=== PATIENT | male | born 1955 | race Asian ===

== ENCOUNTER 2021-01-22 14:27 | Inpatient (IN) | payer MEDICAID ==
[~2021-01-22] VITALS: Ht 162.6 cm; Wt 67.6 kg
--- NOTE | 2021-01-22 14:45 | NUR ---
[id number] worsening lower back pain x 1 week. per report unable to ambulate today. 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 Patient a/ox3, breathing even and unlabored, no sob noted.
[2021-01-22] MEDS ORDERED: oxyCODONE/APAP (5/325 MG) 1 UDTAB TABLET PO ONE (15:30)
[2021-01-22] MEDS ORDERED: CYCLOBENZAPRINE 10 MG TABLET PO ONE (15:30)
--- NOTE | 2021-01-22 15:50 | NUR ---
Patient came back from radiology.
[2021-01-22] MEDS ORDERED: CYCLOBENZAPRINE 10 MG TABLET ONE (15:53)
[2021-01-22] MEDS ORDERED: oxyCODONE/APAP (5/325 MG) 1 UDTAB TABLET ONE (15:53)
[2021-01-22] MEDS ORDERED: CLONIDINE HCL 0.1 MG TABLET ONE (16:49)
[2021-01-22] MEDS ORDERED: HYDROMORPHONE 1 MG/1 ML DISP.SYRIN ONE (16:49)
[2021-01-22] MEDS ORDERED: CLONIDINE HCL 0.1 MG TABLET PO ONE (17:00)
[2021-01-22] MEDS ORDERED: HYDROMORPHONE 1 MG/1 ML DISP.SYRIN IM ONE (17:00)
--- NOTE | 2021-01-22 17:58 | NUR ---
BP STILL ELEVATED, INFORMED DR. BAEZA. PATIENT C/O PAIN ONLY WHEN HE MOVES.
[2021-01-22] MEDS ORDERED: LABETALOL 20 MG/4 ML VIAL IV ONE ×2 (18:30→19:30)
[2021-01-22] MEDS ORDERED: LABETALOL HCL IV 100MG VIAL ONE (18:43)
[2021-01-22 18:54] LABS: BASOPHILS % (AUTO) 0.7 % (0.0-2.0); EOSINOPHILS % (AUTO) 2.1 % (0.0-6.0); HEMATOCRIT 38 % (39-51); HEMOGLOBIN 12.6 g/dL (13.5-17.5); LYMPHOCYTES # (AUTO) 1.6 /CMM (0.8-4.8); LYMPHOCYTES % (AUTO) 22.9 % (20.0-44.0); MEAN CORPUSCULAR HGB CONC 33 g/dl (31.0-36.0); MEAN CORPUSCULAR VOLUME 89 fL (80-96); MONOCYTES # (AUTO) 0.6 /CMM (0.1-1.30); MONOCYTES % (AUTO) 8.6 % (2.0-12.0); NEUTROPHILS # (AUTO) 4.6 /CMM (1.8-8.9); NEUTROPHILS % (AUTO) 65.7 % (43.0-81.0); PLATELET COUNT (AUTO) 328 /CMM (150-450); RED BLOOD CELL COUNT(AUTO) 4.31 MIL/uL (4.5-6.0)
--- NOTE | 2021-01-22 19:05 | NUR ---
rec'd report from STACIA Doll for ilan
[2021-01-22 19:08] LABS: CALCIUM, SERUM 8.5 mg/dL (8.5-10.1); CREATININE 0.9 mg/dL (0.6-1.3); POTASSIUM 3.3 mmol/L (3.5-5.1)
--- NOTE | 2021-01-22 19:15 | NUR ---
REPORT GIVEN TO HEMA PALOMO.
--- NOTE | 2021-01-22 19:38 | NUR ---
DR. BAEZA SPEAKING WITH JOSH ANAND NP REGARDING ADMISSION
--- NOTE | 2021-01-22 20:34 | NUR ---
gave report to STACIA Friedman for ilan
[2021-01-22 21:00] VITALS: BP 132/67
--- NOTE | 2021-01-22 21:05 | NUR ---
ADMISSION NOTE PT ADMITTED FROM ER FOR IRETRACTABLE BACK PAIN. PATIENT RESIDENT AT [address] [place] [address] ASSISTED LIIGN. PATIENT CC WAS WORSENING LOWER BACK PAIN FOR 1 WEEK AND TODAY HE WAS UNABLE TO WALK. PT A/OX3 MANDARIN SETSWANA SPEAKING PRIMARILY. SPEAKS LITTLE MALTESE. PT PLACED IN BED. PT ORIENTED TO ROOM. PT DEMONSTRATED ABILITY TO USE CALL LIGHT. PT REPORTS NO PAIN TO BACK IF HE KEEPS STILL AND DOESN'T MOVE. BED DOWN LOCKED SRX2 AWAITING ORDERS FROM ADMITTING PROVIDER KIKA HUYNH.
[2021-01-22] MEDS: ENOXAPARIN SODIUM 40 MG/0.4 ML DISP.SYRIN SQ SCH ×2 (23:00→23:11)
[2021-01-22] MEDS ORDERED: ACETAMINOPHEN 325 MG TABLET PO PRN (23:00)
[2021-01-22] MEDS ORDERED: ONDANSETRON HCL/PF 4 MG/2 ML VIAL IVP PRN (23:00)
[2021-01-22] MEDS ORDERED: HYDROMORPHONE INJ 2 MG/ML DISP.SYRIN IV PRN (23:00)
[2021-01-22] MEDS ORDERED: Z GUARD REMEDY 2 OZ OINT TP PRN (23:00)
[2021-01-22] MEDS ORDERED: MAGNESIUM HYDROXIDE 30 ML UDC PO PRN (23:00)
[2021-01-22] MEDS ORDERED: MAG HYDROX/AL HYDROX/SIMETH 30 ML UDC PO PRN (23:00)
[2021-01-22] MEDS: POTASSIUM CHLORIDE 20 MEQ TAB.PRT.SR PO ONE ×2 (23:10→23:36)
--- NOTE | 2021-01-22 23:37 | NUR ---
Patient refused potassium and lovenox. Patient educated on risks and benefits. He replies "I dont need those. If it is not pain medicine I dont need it. I am here for back pain! I am not going to take them"
[2021-01-23 06:00] LABS: BASOPHILS % (AUTO) 0.5 % (0.0-2.0); HEMATOCRIT 37 % (39-51); HEMOGLOBIN 12.2 g/dL (13.5-17.5); LYMPHOCYTES # (AUTO) 1.4 /CMM (0.8-4.8); LYMPHOCYTES % (AUTO) 26.8 % (20.0-44.0); MEAN CORPUSCULAR HGB CONC 33 g/dl (31.0-36.0); MEAN CORPUSCULAR VOLUME 89 fL (80-96); MONOCYTES # (AUTO) 0.5 /CMM (0.1-1.30); MONOCYTES % (AUTO) 9.6 % (2.0-12.0); NEUTROPHILS # (AUTO) 3.2 /CMM (1.8-8.9); NEUTROPHILS % (AUTO) 60.1 % (43.0-81.0); PLATELET COUNT (AUTO) 287 /CMM (150-450); RED BLOOD CELL COUNT(AUTO) 4.14 MIL/uL (4.5-6.0); WHITE BLOOD COUNT (AUTO) 5.3 K/uL (4.3-11.0)
[2021-01-23 06:10] LABS: CALCIUM, SERUM 8.8 mg/dL (8.5-10.1); CREATININE 0.9 mg/dL (0.6-1.3); MAGNESIUM 2.5 mg/dL (1.8-2.4); POTASSIUM 3.1 mmol/L (3.5-5.1)
--- NOTE | 2021-01-23 06:18 | NUR ---
MS RN CLOSING NOTE Patient is sleeping but easy to rouse. A&Ox3. VS WNL. In no distress. Patient reports that at rest he does not feel pain, able to sleep throughout the night. Upon turning repositioning patient reports his back and neck is uncomfortable. Staff is gentle. Able to urinate using urinal, yellow clear urine. No signs of distress.
[2021-01-23] MEDS: PANTOPRAZOLE 40 MG TABLET.DR PO SCH (07:30)
--- NOTE | 2021-01-23 07:40 | NUR ---
MS RN OPENING NOTES RECEIVED PATIENT IN BED ASLEEP, EASILY AROUSE TO VOICE AND TOUCH. ALERT AND ORIENTED X3. PATIENT STABLE ON ROOM AIR. NO SIGNS OR SYMPTOMS OF DISTRESS NOTED. BREATHING IS REGULAR AND UNLABORED. IV ACCESS ON R WRIST#20 PATENT AND INTACT. SPEAKS MANDARIN, ABLE TO SPEAK SOME YAKUT. SAFETY MEASURES IN PLACE, BED LOCKED IN LOWEST POSITION. SIDE RAILS UP X 2. CALL LIGHT IS WITHIN REACH. WILL CONTINUE TO MONITOR THROUGHOUT SHIFT.
[2021-01-23 08:00] VITALS: BP 196/92
[2021-01-23] MEDS ORDERED: POTASSIUM CHLORIDE 20 MEQ TAB.PRT.SR PO ONE (08:30)
[2021-01-23] MEDS: ASPIRIN EC 81 MG TABLET.DR PO SCH (10:55)
[2021-01-23] MEDS: AMLODIPINE BESYLATE 10 MG TABLET PO SCH (10:56)
[2021-01-23] MEDS: METHOCARBAMOL (500MG) 500 MG TABLET PO SCH ×2 (12:22→20:26)
[2021-01-23] MEDS ORDERED: HYDROCODONE/APAP 5/325MG TABLET PO PRN (13:30)
[2021-01-23 16:00] VITALS: BP 166/97
[2021-01-23] MEDS: HYDROCODONE/APAP 10/325MG TABLET PO PRN ×3 (16:24→17:11)
[2021-01-23] MEDS: CLONIDINE HCL 0.1 MG TABLET PO PRN (16:57)
--- NOTE | 2021-01-23 19:14 | NUR ---
MS RN CLOSING NOTE PATIENT IN BED AWAKE. ALERT AND ORIENTED X3 . NO SIGNS OF LABORED BREATHING. NO SIGNS OR SYMPTOMS OF DISTRESS NOTED. IV ACCESS PATENT AND INTACT. SAFETY MEASURES IN PLACE, BED LOCKED IN LOWEST POSITION. SIDE RAILS UP X 2. CALL LIGHT IS WITHIN REACH. WILL ENDORSE CONTINUITY OF CARE TO ONCOMING SHIFT.
--- NOTE | 2021-01-23 19:30 | NUR ---
MS RN RALF NOTES: RECEIVED RESIDENT SLEEP IN BED COMFORTABLY, AROUSABLE TO STIMULI, BED IN LOW POSITION, CALL LIGHTS WTIHIN REACH, A/O X3 ON BED CARTAGENA AND URINAL, RA WITH O2 SAT AT 98 PERCENT, WITH RT WRIST IV LINE PATENT AND INFUSING WELL, RESIDENT COMPLAIN OF PAIN AT THE HIS MIDDLE BACK NO SKIN BREAKDOWN WAS NOTED, DUE MEDICATIONS GIVEN FOR PAIN, RESIDENT KEPT CLEAN AND DRY, ALL NEEDS MET, WILL CONTINUE TO MONITOR.
[2021-01-23 21:23] VITALS: BP 152/88
[2021-01-23 22:00] VITALS: BP 152/88
[2021-01-23] MEDS: ATORVASTATIN 10 MG TABLET PO SCH (22:06)
[2021-01-23] MEDS: ENOXAPARIN SODIUM 40 MG/0.4 ML DISP.SYRIN SQ SCH (22:08)
[2021-01-24] MEDS: METHOCARBAMOL (500MG) 500 MG TABLET PO SCH ×3 (04:29→19:59)
[2021-01-24 05:03] VITALS: BP 152/88
[2021-01-24 06:04] LABS: CALCIUM, SERUM 8.9 mg/dL (8.5-10.1); CREATININE 0.9 mg/dL (0.6-1.3); POTASSIUM 3.6 mmol/L (3.5-5.1)
--- NOTE | 2021-01-24 06:36 | NUR ---
MS RN CLOSING NOTES: PATIENT SLEEP IN BED COMFORTABLY, BED IN LOW POSITION, CALL LIGHTS WITHIN REACH, NO COMPLAIN OF PAIN AND DISCOMFORT AT THIS TIME , PATIENT IS A/O X3 ABLE TO MAKE NEEDS KNOWN, , IV LINE ON R WRIST G #20 PATENT AND INFUSING WELL, NO SOB WAS OBSERVED DURING THE SHIFT, ALL NEEDS MET, KEPT CLEAN AND DRY, [facility]
[2021-01-24] MEDS: PANTOPRAZOLE 40 MG TABLET.DR PO SCH ×2 (07:30→08:22)
--- NOTE | 2021-01-24 07:50 | NUR ---
MS OPENING NOTE PATIENT IS IN BED RESTING, PATIENT IS IN NO ACUTE DISTRESS, PATIENT IS ON ROOM AIR, TOLERATING WELL, NO SOB NOTED. PATIENT IS AMBULATORY WITH ASSISTANCE, SAFETY PRECAUTIONS ARE ON, BED IS LOCKED IN THE LOWEST POSITION, SIDE RAILS ARE UP, CALL LIGHT WITHIN REACH, WILL CONTINUE TO MONITOR CLOSELY THROUGHOUT THE SHIFT.
[2021-01-24 08:00] VITALS: BP 174/89
[2021-01-24] MEDS: HYDROCODONE/APAP 10/325MG TABLET PO PRN ×2 (08:22→17:31)
[2021-01-24] MEDS: ASPIRIN EC 81 MG TABLET.DR PO SCH ×2 (08:22→08:27)
[2021-01-24] MEDS: AMLODIPINE BESYLATE 10 MG TABLET PO SCH (08:23)
--- NOTE | 2021-01-24 08:28 | NUR ---
MS RN NOTE PATIENT REFUSED SCHEDULED MEDICATION PROTONIX AND ASPIRIN, EDUCATED RISK AND BENEFITS, PATIENT KEPT ON REFUSING
[2021-01-24 16:00] VITALS: BP 186/106
[2021-01-24] MEDS: LISINOPRIL (10MG) 10 MG TABLET PO SCH (17:31)
--- NOTE | 2021-01-24 18:49 | NUR ---
MS RN CLOSING NOTE PATIENT IS IN BED RESTING, PATIENT IS IN NO ACUTE DISTRESS, PATIENT IS ON ROOM AIR, TOLERATING WELL, NO SOB NOTED. PATIENT IS AMBULATORY WITH ASSISTANCE, SAFETY PRECAUTIONS ARE ON, BED IS LOCKED IN THE LOWEST POSITION, SIDE RAILS ARE UP, CALL LIGHT WITHIN REACH, ENDORSE PATIENT TO DEMOLITION EXPERT NURSE FOR TYRESE.
--- NOTE | 2021-01-24 19:30 | NUR ---
MS/RN OPENING NOTE RECEIVED PATIENT IN BED RESTING. PATIENT IS ALERT IS A/O X 3, RR EVEN AND UNLABORED NO SIGNS OF SOB. PATIENT IN NO ACUTE SIGNS OF DISTRESS. PATIENT IS STABLE ON ROOM AIR. PATIENT HAS IV ACCESS ON R WRIST FLUSHING WELL. WILL CONTINUE WITH PATIENT PLAN OF CARE.
[2021-01-24] MEDS: ENOXAPARIN SODIUM 40 MG/0.4 ML DISP.SYRIN SQ SCH ×2 (21:00→21:34)
[2021-01-24] MEDS: ATORVASTATIN 10 MG TABLET PO SCH ×2 (21:33→21:43)
--- NOTE | 2021-01-24 21:43 | NUR ---
MS/RN NOTES PATIENT REFUSING PM MEDICATION RISK AND BENEFITS HAVE BEEN EXPLAINED X 2 WILL CONTINUE TO MONITOR
[2021-01-24 21:52] VITALS: BP 155/89
[2021-01-25] MEDS: METHOCARBAMOL (500MG) 500 MG TABLET PO SCH ×4 (04:00→20:20)
[2021-01-25 06:11] LABS: CREATININE 0.8 mg/dL (0.6-1.3)
--- NOTE | 2021-01-25 06:45 | NUR ---
MS/RN CLOSING NOTE PATIENT IN BED RESTING. PATIENT IS ALERT IS A/O X 3, RR EVEN AND UNLABORED NO SIGNS OF SOB. PATIENT IN NO ACUTE SIGNS OF DISTRESS. PATIENT IS STABLE ON ROOM AIR. PATIENT HAS IV ACCESS ON R WRIST FLUSHING WELL. SAFETY MEASURES ARE IN PLACE, BED IS LOCKED AND PLACED IN THE LOWEST POSITION, SIDE RAILS UP X 2, CALL LIGHT WITHIN REACH. WILL ENDORSE CARE TO DAY SHIFT.
--- NOTE | 2021-01-25 07:30 | NUR ---
OPENING NOTE: REPORT OF STACIA WALKER. PATIENT IN BED RESTING, ALERT IS A/O X 3, PATIENT WITHOUT SIGNS OF DISCOMFORT OR DISTRESS. PATIENT ON ROOM AIR. IV ACCESS ON R WRIST, FLUSHING WELL. SAFETY MEASURES ARE IN PLACE, BED IS LOCKED AND PLACED IN THE LOWEST POSITION, SIDE RAILS UP X 2, CALL LIGHT WITHIN REACH. WILL CONTINUE POC.
[2021-01-25 08:00] VITALS: BP 148/92
[2021-01-25] MEDS: AMLODIPINE BESYLATE 10 MG TABLET PO SCH (08:47)
[2021-01-25] MEDS: ASPIRIN EC 81 MG TABLET.DR PO SCH (08:47)
[2021-01-25] MEDS: HYDROCODONE/APAP 10/325MG TABLET PO PRN ×3 (08:48→18:17)
[2021-01-25] MEDS: LISINOPRIL (10MG) 10 MG TABLET PO SCH (08:48)
[2021-01-25] MEDS: PANTOPRAZOLE 40 MG TABLET.DR PO SCH (08:48)
[2021-01-25 16:00] VITALS: BP 143/98
--- NOTE | 2021-01-25 18:26 | NUR ---
CLOSING NOTE: PATIENT REMIANS A/O X 3 ON ROOM AIR. NO S/S OF DISCOMFORT OR DISTRESS. IV TO RIGHT WRIST REMAINS PATENT WITH SITE C/D/I. MEDICATED FOR BACK PAIN X 2 THIS SHIFT. LINO DE LEON ENCOURAGED PATIENT TO TRY MUSCLE RELAXER AND TRY TO WORK WITH PT FOR INCREASED ACTIVITY AND LESS PAIN. NO CHANGES TO PAIN MANAGEMENT AT THIS TIME. PATIENT ASSISTED NEEDED WITH ADL'S. PLAN IS TO DISCHARE PATIENT TO SNF FOR CONTINUED PT. WILL ENDORSE TO NIGHT NURSE.
--- NOTE | 2021-01-25 19:30 | NUR ---
MS/RN OPENING NOTES RECEIVED PATIENT IN BED RESTING. PATIENT IS ALERT IS A/O X 3-4, RR EVEN AND UNLABORED NO SIGNS OF SOB. PATIENT IN NO ACUTE SIGNS OF DISTRESS. PATIENT IS STABLE ON ROOM AIR. PATIENT HAS IV ACCESS ON R WRIST FLUSHING WELL. SAFETY MEASURES ARE IN PLACE, BED IS LOCKED AND PLACED IN THE LOWEST POSITION, SIDE RAILS UP X 2, CALL LIGHT WITHIN REACH. WILL CONTINUE WITH PATIENT PLAN OF CARE.
[2021-01-25 20:30] VITALS: BP 144/89
[2021-01-25] MEDS: ENOXAPARIN SODIUM 40 MG/0.4 ML DISP.SYRIN SQ SCH (21:01)
[2021-01-25] MEDS: ATORVASTATIN 10 MG TABLET PO SCH (22:00)
[2021-01-26] MEDS: METHOCARBAMOL (500MG) 500 MG TABLET PO SCH ×3 (04:15→20:32)
--- NOTE | 2021-01-26 06:50 | NUR ---
MS/RN CLOSING NOTES PATIENT IN BED SLEEPING EASY TO WAKE. PATIENT IS ALERT IS A/O X 3-4, RR EVEN AND UNLABORED NO SIGNS OF SOB. PATIENT IN NO ACUTE SIGNS OF DISTRESS. PATIENT IS STABLE ON ROOM AIR. PATIENT HAS IV ACCESS ON R WRIST FLUSHING WELL. ALL NEEDS HAVE BEEN MET DURING SHIFT. SAFETY MEASURES ARE IN PLACE, BED IS LOCKED AND PLACED IN THE LOWEST POSITION, SIDE RAILS UP X 2, CALL LIGHT WITHIN REACH. WILL ENDORSE TO DAY SHIFT NURSE.
[2021-01-26 07:02] LABS: CALCIUM, SERUM 8.6 mg/dL (8.5-10.1); CREATININE 0.9 mg/dL (0.6-1.3); POTASSIUM 3.7 mmol/L (3.5-5.1)
--- NOTE | 2021-01-26 07:12 | NUR ---
MS/RN OPENING NOTES RECEIVED PATIENT IN BED RESTING. PATIENT IS ALERT IS A/O X 3-4, BREATHING EVENLY AND UNLABORED NO SIGNS OF SOB. PATIENT IN NO ACUTE SIGNS OF DISTRESS. PATIENT IS STABLE ON ROOM AIR. PATIENT HAS IV ACCESS ON R WRIST #20 GAUGE PATENT AND INTACT. SAFETY MEASURES ARE IN PLACE, BED IS LOCKED AND PLACED IN THE LOWEST POSITION, SIDE RAILS UP X 2, CALL LIGHT WITHIN REACH. WILL CONTINUE CONTINUE TO MONITOR.
[2021-01-26 08:00] VITALS: BP 152/90
--- NOTE | 2021-01-26 08:00 | NUR ---
RN NOTES PATIENT COMPLAINED OF 9/10 IN THE BACK AREA. PATIENT IS ASKING FOR PRN PAIN MEDICATION. WILL GIVE PRN PAIN MEDICATION ORDERED AND REASSESS
[2021-01-26] MEDS: AMLODIPINE BESYLATE 10 MG TABLET PO SCH (08:03)
[2021-01-26] MEDS: ASPIRIN EC 81 MG TABLET.DR PO SCH (08:03)
[2021-01-26] MEDS: PANTOPRAZOLE 40 MG TABLET.DR PO SCH (08:03)
[2021-01-26] MEDS: LISINOPRIL (10MG) 10 MG TABLET PO SCH (08:04)
[2021-01-26] MEDS: HYDROCODONE/APAP 10/325MG TABLET PO PRN ×2 (08:04→15:56)
[2021-01-26 10:31] VITALS: BP 152/90
[2021-01-26 16:00] VITALS: BP 145/84
--- NOTE | 2021-01-26 16:00 | NUR ---
RN NOTE PATIENT COMPLAINED OF SEVERE LOWER BACK PAIN. PATIENT ASKED FOR PRN PAIN MEDICATION. GAVE MEDICATION ORDERED. WILL CONTINUE TO MONITOR AND REASSESS PAIN.
--- NOTE | 2021-01-26 18:37 | NUR ---
MS/RN CLOSING NOTE PATIENT IN BED RESTING. PATIENT IS ALERT IS A/O X 3, PATIENT IS BREATHING EVENLY AND UNLABORED NO SIGNS OF SOB. PATIENT IS IN NO ACUTE SIGNS OF DISTRESS. PATIENT IS STABLE ON ROOM AIR. PATIENT HAS IV ACCESS ON R WRIST FLUSHING WELL. ALL MEDICATION WAS GIVEN ORDERED. SAFETY MEASURES ARE IN PLACE, BED IS LOCKED AND PLACED IN THE LOWEST POSITION, SIDE RAILS UP X 2, CALL LIGHT WITHIN REACH. WILL ENDORSE TO ONCOMING SHIFT
--- NOTE | 2021-01-26 19:30 | NUR ---
MS/RN OPENING NOTES PATIENT IN BED RESTING. PATIENT IS ALERT IS A/O X 4, RR EVEN AND UNLABORED NO SIGNS OF SOB. PATIENT IN NO ACUTE SIGNS OF DISTRESS. PATIENT IS STABLE ON ROOM AIR. PATIENT HAS IV ACCESS ON R WRIST FLUSHING WELL. SAFETY MEASURES ARE IN PLACE, BED IS LOCKED AND PLACED IN THE LOWEST POSITION, SIDE RAILS UP X 2, CALL LIGHT WITHIN REACH. WILL CONTINUE WITH PATIENT PLAN OF CARE.
[2021-01-26] MEDS: ENOXAPARIN SODIUM 40 MG/0.4 ML DISP.SYRIN SQ SCH (20:33)
[2021-01-26 20:55] VITALS: BP 158/90
[2021-01-26] MEDS: ATORVASTATIN 10 MG TABLET PO SCH (22:07)
[2021-01-27] MEDS: METHOCARBAMOL (500MG) 500 MG TABLET PO SCH (03:54)
--- NOTE | 2021-01-27 07:33 | NUR ---
RN NOTES PATIENT IS COMPLAINING OF SEVERE BACK PAIN 06/15. BLOOD PRESSURE WAS NOTED 160/98. PATIENT IS ASKING FOR PRN PAIN MEDICATION STATES IT WILL HELP PAIN AND HIS BLOOD PRESSURE. HE REFUSED PRN BLOOD PRESSURE MEDICATION AT THIS TIME. WILL RECHECK PAIN AND BP AFTER PRN PAIN MEDICATION IS GIVEN. WILL CONTINUE TO MONITOR
[2021-01-27] MEDS: HYDROCODONE/APAP 10/325MG TABLET PO PRN (07:34)
[2021-01-27 08:00] VITALS: BP 160/98
[2021-01-27] MEDS: LISINOPRIL (10MG) 10 MG TABLET PO SCH (08:02)
[2021-01-27] MEDS: ASPIRIN EC 81 MG TABLET.DR PO SCH (08:02)
[2021-01-27] MEDS: PANTOPRAZOLE 40 MG TABLET.DR PO SCH (08:02)
[2021-01-27] MEDS: AMLODIPINE BESYLATE 10 MG TABLET PO SCH (08:03)
--- NOTE | 2021-01-27 10:45 | NUR ---
RN NOTES GAVE REPORT TO PHYLLIS. AT [facility] PAPER TWISTER TENDER TIME @ 1100 AM.
[2021-01-27 11:12] VITALS: BP 187/94
[2021-01-27] MEDS: CLONIDINE HCL 0.1 MG TABLET PO PRN (11:12)
--- NOTE | 2021-01-27 11:15 | NUR ---
HATCHERY WORKER NOTE RECEIVED ORDER FOR DISCHARGE. PATIENT IS A/O X 4 BREATHING EVENLY AND NON LABORED ON ROOM AIR. PATIENT IS ABLE TO MAKE NEEDS KNOWN. PATIENT IS GOING TO [facility], GAVE REPORT TO PHYLLIS. PATIENT'S SKIN IS INTACT. ALL BELONGINGS WERE ACCOUNTED FOR AND FORM SIGNED. IV AND ID BAND WAS REMOVED. PATIENT'S BLOOD PRESSURE ON DISCHARGE WAS 187/94 MANUALLY CHECKED. GAVE PRN BLOOD PRESSURE MEDICATION. PATIENT LEFT IN STABLE CONDITION WITH 2 GINGER FARMER.
== END 2021-01-27 11:05 | DRG 347 ==
LOC: ER 14:29 → MED 20:39
PROVIDERS: ADMIT Nurse Practitioner Family; ATTEND Nurse Practitioner Acute Care
DX: M48.14 Ankylosing hyperostosis [Forestier], thoracic region (principal); D68.59 Other primary thrombophilia; E87.6 Hypokalemia; M48.04 Spinal stenosis, thoracic region; I16.0 Hypertensive urgency; E78.00 Pure hypercholesterolemia, unspecified; I10 Essential (primary) hypertension; M51.34 Other intervertebral disc degeneration, thoracic region; Z20.822 Contact with and (suspected) exposure to COVID-19; M47.816 Spondylosis without myelopathy or radiculopathy, lumbar region; N40.0 Benign prostatic hyperplasia without lower urinary tract symptoms; Z79.899 Other long term (current) drug therapy; F41.9 Anxiety disorder, unspecified; F25.9 Schizoaffective disorder, unspecified; I70.0 Atherosclerosis of aorta; Z86.718 Personal history of other venous thrombosis and embolism; Z86.73 Personal history of transient ischemic attack (TIA), and cerebral infarction without residual deficits; Z74.09 Other reduced mobility; F32.9 Major depressive disorder, single episode, unspecified; N20.0 Calculus of kidney; M40.204 Unspecified kyphosis, thoracic region; D63.8 Anemia in other chronic diseases classified elsewhere; F39 Unspecified mood [affective] disorder
CPT/HCPCS: 36415; 71045-TC; 72128-TC; 72131-TC; 80048-TC; 80061-TC; 83735-TC; 83880; 84100-TC; 85025-TC; 87081-TC; 97112-TC; 97530-TC; G0378; J1170; J1650; J3490; U0003